=== PATIENT | male | born 1960 | race Caucasian/White ===

== ENCOUNTER → 2017-08-05 | Outpatient (CLI) | payer OTHER ==
--- NOTE | 2017-08-05 17:10 | XR ---
EXAMINATION TYPE: XR foot limited bilateral DATE OF EXAM: 08/05/2017 COMPARISON: NONE HISTORY: Heel pain TECHNIQUE: 4 views. 2 views of each foot. FINDINGS: There are small bilateral plantar calcaneal spurs. Metatarsals appear intact. I see no frac ture nor dislocation. There is mild hallux valgus. IMPRESSION: Small plantar calcaneal spurs. Mild fairly symmetric hallux valgus. No fracture. No evide nce of inflammatory arthritis.
== END | disposition home or self-care (01) ==
LOC: RADXRYALE 16:51
PROVIDERS: ATTEND Internal Medicine
DX: M77.32 Calcaneal spur, left foot (principal); M77.31 Calcaneal spur, right foot

== ENCOUNTER → 2017-09-16 | Outpatient (CLI) | payer OTHER ==
--- NOTE | 2017-09-16 14:40 | XR ---
EXAMINATION TYPE: XR lumbosacral spine min 4V DATE OF EXAM: 09/16/2017 COMPARISON: 04/13/2012 HISTORY: Low back pain TECHNIQUE: Lumbar spine 5 views FINDINGS: There 5 lumbar-type type vertebral bodies. Pedicles are intact. Facets are normal. The L5-S 1 disc height is narrowed. Some narrowing of the posterior L4-5 disc height is present. Some L1-L2 po sterior disc space narrowing may be present. Remaining disc heights are preserved. Vertebral body hei ghts are preserved. IMPRESSION: 1. Degenerative disc changes greatest at L5-S1 discussed above.
== END | disposition home or self-care (01) ==
LOC: RADXRYALE 13:27
PROVIDERS: ATTEND Internal Medicine
DX: M51.37 Other intervertebral disc degeneration, lumbosacral region (principal)
CPT/HCPCS: 72110

== ENCOUNTER → 2022-02-07 | Outpatient (CLI) | payer OTHER ==
--- NOTE | 2022-02-07 14:33 | XR ---
EXAMINATION TYPE: XR shoulder complete LT DATE OF EXAM: 02/07/2022 CLINICAL HISTORY: pain COMPARISON: NONE TECHNIQUE: Three views of the left shoulder are obtained. FINDINGS: There is no acute fracture/dislocation evident. The acromioclavicular and glenohumeral kathrine int spaces appear within normal limits. The visualized ribs are intact and unremarkable. IMPRESSION: 1. There is no acute fracture or dislocation. ICD 10 NO FRACTURE, INITIAL EVALUATION
== END | disposition home or self-care (01) ==
LOC: RADXRYALE 13:05
PROVIDERS: ATTEND Internal Medicine
DX: M25.512 Pain in left shoulder (principal)